=== PATIENT | male | born 1945 | race Caucasian/White ===

== ENCOUNTER 2016-05-22 08:42 | Inpatient (IN) | payer MEDICARE, BC ==
[~2016-05-22] VITALS: Ht 170.2 cm; Wt 80.3 kg
[2016-05-22] MEDS ORDERED: ONDANSETRON 4 MG VIAL IV PRN (09:00)
[2016-05-22] MEDS ORDERED: ACETAMINOPHEN 325 MG TAB PO PRN (09:00)
[2016-05-22] MEDS ORDERED: ALU/MAG/SIM 30 ML UDC PO PRN (09:00)
[2016-05-22] MEDS ORDERED: TEMAZEPAM 7.5 MG CAP PO PRN (09:00)
[2016-05-22] MEDS ORDERED: NITROGLYCERIN SL 0.4 MG TAB SL PRN (09:00)
[2016-05-22] MEDS ORDERED: SALINE FLUSH 10 ML FLUSH PRN (09:00)
[2016-05-22] MEDS ORDERED: DOCUSATE SOD 100 MG CAP PO PRN (09:00)
[2016-05-22] MEDS ORDERED: MORPHINE 2 MG/ML SYR IV PRN (09:00)
[2016-05-22] MEDS ORDERED: LORAZEPAM 2 MG TAB PO PRN (09:00)
[2016-05-22 13:00] VITALS: BP_SYST 138; BP_SYST 140; RESP 22; TEMP 97.5; Ht 170.2 cm; Wt 80.3 kg
[2016-05-22] MEDS ORDERED: THIAMINE 100 MG in SODIUM CHLORIDE 0.9% 50 ML IV ONE (13:08)
[2016-05-22] MEDS ORDERED: MISSING DOSE XX ONE (15:15)
[2016-05-22] MEDS: PANTOPRAZOLE 40 MG TAB PO SCH (15:30)
[2016-05-22] MEDS: THIAMINE 100 MG TAB PO SCH (15:30)
[2016-05-22] MEDS: SERTRALINE 50 MG TAB PO SCH (15:30)
[2016-05-22] MEDS: MULTIVITS/MINERALS (THERAGRAN M) TAB PO SCH (15:30)
[2016-05-22] MEDS: FOLIC ACID 1 MG TAB PO SCH (15:30)
[2016-05-22 15:55] VITALS: BP_SYST 159; RESP 18; TEMP 97.9
[2016-05-22] MEDS ORDERED: KCL CR 10 MEQ CAP PO ONE (16:00)
[2016-05-22] MEDS ORDERED: DUONEB INH PRN (16:00)
[2016-05-22 17:29] VITALS: RESP 18
[2016-05-22] MEDS: METOPROLOL TART 25 MG TAB PO SCH (17:31)
[2016-05-22] MEDS: ISOSORBIDE MONO 30 MG TAB PO SCH (17:31)
[2016-05-22] MEDS: CLOPIDOGREL 75 MG TAB PO SCH (17:31)
[2016-05-22 19:49] VITALS: BP_SYST 135; RESP 18; TEMP 97.3
[2016-05-22] MEDS: SALINE FLUSH 10 ML FLUSH SCH (20:01)
[2016-05-22] MEDS ORDERED: Atorvastatin 20 MG TAB PO SCH (21:00)
[2016-05-23 00:04] VITALS: BP_SYST 157; RESP 18; TEMP 97.9
[2016-05-23 03:33] VITALS: BP_SYST 150; RESP 18; TEMP 98.7
[2016-05-23] MEDS: PANTOPRAZOLE 40 MG TAB PO SCH (05:49)
[2016-05-23] MEDS ORDERED: SODIUM CHLORIDE 0.9% FLUSH BAG 500 ML IV SCH (06:00)
[2016-05-23 07:45] VITALS: BP_SYST 167; RESP 18; TEMP 97.5
[2016-05-23] MEDS ORDERED: ASPIRIN 81 MG CHEW TAB PO SCH (08:00)
[2016-05-23] MEDS: SALINE FLUSH 10 ML FLUSH SCH (09:02)
[2016-05-23] MEDS: SERTRALINE 50 MG TAB PO SCH (09:03)
[2016-05-23] MEDS: THIAMINE 100 MG TAB PO SCH (09:03)
[2016-05-23] MEDS: FOLIC ACID 1 MG TAB PO SCH (09:03)
[2016-05-23] MEDS: MULTIVITS/MINERALS (THERAGRAN M) TAB PO SCH (09:03)
[2016-05-23] MEDS ORDERED: MISSING DOSE XX ONE (09:40)
[2016-05-23] MEDS: METOPROLOL TART 25 MG TAB PO SCH (10:41)
[2016-05-23] MEDS: ISOSORBIDE MONO 30 MG TAB PO SCH (10:42)
[2016-05-23] MEDS: CLOPIDOGREL 75 MG TAB PO SCH (10:42)
[2016-05-23 15:36] VITALS: BP_SYST 160; RESP 20; TEMP 97.7
[2016-05-23 15:39] VITALS: BP_SYST 167; RESP 18; TEMP 97.5
[2016-05-23] MEDS ORDERED: METOPROLOL TART 25 MG TAB PO SCH (21:00)
== END 2016-05-23 17:07 | disposition home or self-care (01) | DRG 313 ==
LOC: ENRESERVDT → ENRESERVTM → ENPENDDIS 12:56 → PCU2 12:56
PROVIDERS: ADMIT Internal Medicine; ATTEND Internal Medicine
DX: R07.89 Other chest pain (principal); I50.30 Unspecified diastolic (congestive) heart failure; I42.9 Cardiomyopathy, unspecified; I25.118 Atherosclerotic heart disease of native coronary artery with other forms of angina pectoris; E11.9 Type 2 diabetes mellitus without complications; F10.20 Alcohol dependence, uncomplicated; M19.90 Unspecified osteoarthritis, unspecified site; E78.5 Hyperlipidemia, unspecified; I11.0 Hypertensive heart disease with heart failure; I34.0 Nonrheumatic mitral (valve) insufficiency; J44.9 Chronic obstructive pulmonary disease, unspecified; Z87.891 Personal history of nicotine dependence; Z83.3 Family history of diabetes mellitus; Z82.49 Family history of ischemic heart disease and other diseases of the circulatory system
CPT/HCPCS: 71010; 80053; 80061; 82947; 83036; 83735; 83880; 84484; 85025; 85610; 85730; 93005; 93306; 94799